=== PATIENT | male | born 1950 | race Caucasian/White ===

== ENCOUNTER → 2019-10-20 | Outpatient (CLI) | payer OTHER | END | disposition home or self-care (01) | LOC: CVU 15:59 | PROVIDERS: ATTEND Orthopaedic Surgery | DX: I35.8 Other nonrheumatic aortic valve disorders (principal); I25.2 Old myocardial infarction; I10 Essential (primary) hypertension; E78.5 Hyperlipidemia, unspecified; Z95.1 Presence of aortocoronary bypass graft | CPT/HCPCS: 93306 ==

== ENCOUNTER 2020-09-13 13:03 | Emergency (ER) | payer OTHER ==
[~2020-09-13] VITALS: Ht 172.7 cm; Wt 73.0 kg
--- NOTE | 2020-09-13 13:25 | NUR ---
PT REFUSED MORE LABS. PER , PT TO BE GIVEN FOOD AND THEN ROAD TEST. PT PROVIDED SANDWHICH AND WATER.
--- NOTE | 2020-09-13 14:15 | NUR ---
PT STOOD AT BEDSIDE AND AMBULATED AROUND ROOM. PT DENIES DIZZINESS. PT STATES FEELS "MUCH BETTER AFTER EATING".
[2020-09-13 15:26] VITALS: BP 133/82
== END 2020-09-13 15:28 | disposition home or self-care (01) ==
LOC: ED 14:06
DX: R55 Syncope and collapse (principal); R42 Dizziness and giddiness; I44.7 Left bundle-branch block, unspecified; I10 Essential (primary) hypertension; E78.5 Hyperlipidemia, unspecified; Z95.1 Presence of aortocoronary bypass graft
CPT/HCPCS: 93005; 99283

== ENCOUNTER → 2021-01-07 | Outpatient (CLI) | payer OTHER | END | disposition home or self-care (01) | LOC: CVU 09:30 | PROVIDERS: ATTEND Orthopaedic Surgery | DX: I35.8 Other nonrheumatic aortic valve disorders (principal); I25.9 Chronic ischemic heart disease, unspecified | CPT/HCPCS: 93306 ==